=== PATIENT | female | born 1970 | race Caucasian/White ===

== ENCOUNTER → 2017-01-31 | Outpatient (CLI) | payer BC ==
[~2017-01-31] VITALS: Ht 170.2 cm; Wt 83.9 kg
[~2017-01-31] MED LIST: BUSP10TA PO; CALC500T27 PO; DEXL60CA PO; DOCU-27 PO; MULT1CAP15 PO; VARE1TAB21 PO
[2017-01-31 09:28] VITALS: BP 107/67
--- NOTE | 2017-01-31 10:36 | RAD ---
Ultrasound-guided right thyroid biopsy, 01/31/2017: History: Thyroid nodule Previous studies demonstrated a heterogeneous nodule in the upper pole of the right lobe of the gland. Under local anesthesia, aseptic conditions and sonographic guidance a 25-gauge needle was passed into this nodule via an anteromedial approach. 4 separate aspirates were obtained from different portions of the nodule with the materials sent to pathology for evaluation. The pathology report is pending. Hemostasis was obtained at the end of the procedure. The patient tolerated the procedure well and left the department in good condition.
== END | disposition home or self-care (01) ==
LOC: US 08:40
PROVIDERS: ATTEND Nurse Practitioner Family
DX: E04.1 Nontoxic single thyroid nodule (principal)
CPT/HCPCS: 60300; 76942